=== PATIENT | female | born 1960 | race African-American/Black ===

== ENCOUNTER → 2017-01-06 | Day surgery (SDC) | payer OTHER ==
[~2017-01-06] MED LIST: HCTZ PO; LISINOPRIL PO; NORTHYX10 MG PO; OMEPRAZOLE40 M1 PO; ZESTORETIC PO
--- NOTE | ~2017-01-06 | OR ---
Unit #: [id number] #: [id number] Patient: DESI JACOBS [id number] [facility]. [place], [place] [address] [id number] MR#: [id number] NAME: DESI JACOBS ROOM: Date of Procedure: 01/06/2017 Admission Date: 01/06/2017 Surgeon: Andrea Lezama M.D. : 1960 Attending Physician: Andrea Lezama M.D. Primary Care Physician: Generic Doctor Not In System OPERATIVE REPORT PROCEDURE PERFORMED Colonoscopy to cecum. INDICATIONS FOR PROCEDURE The patient with Cologuard positive test. MEDICATIONS Monitored anesthesia. POSTOPERATIVE FINDINGS 1. Normal exam to cecum. No polyps, masses, or colitis seen. 2. Good prep. PLAN Repeat colonoscopy in 5 years. DESCRIPTION OF PROCEDURE The patient was explained of the procedure, risks, and benefits along with risks and benefits of anesthesia. She was brought to the endoscopy room. Propofol anesthesia was given. Rectal exam was done, which was normal. Colonoscope was lubricated, passed up the rectum, advanced under direct vision all the way to the cecum. Cecum was identified by ileocecal valve and appendiceal orifice. I then started to pull the scope out carefully looking. No polyps, masses, or colitis was seen. Mucosa was normal and healthy. I retroflexed in the rectum, small hemorrhoids seen. Scope was gently pulled out. She tolerated the procedure very well. No major complications were seen. Dictated by... Citlali Gomez/ana rosa TD: 01/06/2017 23:08 JOB #: [id number] Unit #: [id number] #: [id number] Patient: DESI JACOBS OPERATIVE REPORT Page 1 of 1 X Andrea eLzama MD X PROCEDURE OPERATIVE NOTE
== END | disposition home or self-care (01) ==
LOC: COPS 09:45
DX: Z12.11 Encounter for screening for malignant neoplasm of colon (principal); K64.9 Unspecified hemorrhoids; I10 Essential (primary) hypertension; K21.9 Gastro-esophageal reflux disease without esophagitis; F17.210 Nicotine dependence, cigarettes, uncomplicated; Z79.899 Other long term (current) drug therapy; Z90.49 Acquired absence of other specified parts of digestive tract; Z98.51 Tubal ligation status
CPT/HCPCS: 84703; J2250

== ENCOUNTER 2017-03-14 08:39 | Emergency (ER) | payer OTHER | END 2017-03-14 09:35 | disposition home or self-care (01) | LOC: SED 08:39 | DX: S13.9XXA Sprain of joints and ligaments of unspecified parts of neck, initial encounter (principal); S33.5XXA Sprain of ligaments of lumbar spine, initial encounter; F17.200 Nicotine dependence, unspecified, uncomplicated; Z90.49 Acquired absence of other specified parts of digestive tract; Z98.51 Tubal ligation status; Z79.899 Other long term (current) drug therapy; V43.52XA Car driver injured in collision with other type car in traffic accident, initial encounter | CPT/HCPCS: 99283 ==